=== PATIENT | female | born 1950 | race Caucasian/White ===

== ENCOUNTER → 2018-09-22 14:11 | Outpatient (CLI) | payer MEDICARE, OTHER, SELFPAY | PROVIDERS: PCP Student in an Organized Health Care Education/Training Program; Visit Provider Student in an Organized Health Care Education/Training Program | DX: E07.9 Disorder of thyroid, unspecified (principal); Z78.0 Asymptomatic menopausal state; Z91.89 Other specified personal risk factors, not elsewhere classified; Z90.722 Acquired absence of ovaries, bilateral | CPT/HCPCS: 77080 ==

== ENCOUNTER → 2018-10-09 11:17 | Outpatient (CLI) | payer MEDICARE, OTHER, SELFPAY ==
--- NOTE | 2018-10-09 | DI.MG.S_ITS ---
BILATERAL DIGITAL SCREENING MAMMOGRAM 3D/2D WITH CAD WITH AUGMENTATION: 10/09/2018 CLINICAL: Routine screening. Comparison is made to exams dated: 12/26/2016 mammogram, 12/25/2016 mammogram, and 03/25/2014 mammogram - [facility] in [place]. The tissue of both breasts is heterogeneously dense. This may lower the sensitivity of mammography. Current study was also evaluated with a Computer Aided Detection (CAD) system. Bilateral breast implants are stable and intact. No significant masses, calcifications, or other findings are seen in either breast. There has been no significant interval change. IMPRESSION: NEGATIVE There is no mammographic evidence of malignancy. A 1 year screening mammogram is recommended. This exam was interpreted at Station ID: [id number]. NOTE: For mammograms, a report in lay terms will be sent to the patient. Approximately 15% of breast malignancies will not be visualized mammographically. In the management of a palpable breast mass, a negative mammogram must not discourage biopsy of a clinically suspicious lesion. Electronically Signed By: Jose Armando barker/eduardo:10/09/2018 14:05:10 letter sent: Normal Exam ACR BI-RADS Category 1: Negative 3341F
[2018-10-09 12:37] LABS: Add Manual Diff / Slide Review NO; Basophils Absolute Auto 0 /uL (0-100); Basophils Percent Auto 0.6 % (0-2); Eosinophils Absolute Auto 1800 /uL (0-450); Eosinophils Percent Auto 25.8 % (2-4); Hematocrit 46.4 % (36-46); Hemoglobin 15.5 g/dL (12.0-16.0); Lymphocytes Absolute Auto 1900 /uL (1100-4500); Lymphocytes Percent Auto 27.8 % (25-40); Mean Corpuscular HGB Conc 33.5 % (30-36); Mean Corpuscular Volume 92.7 fL (80-100); Monocytes Absolute Auto 300 /uL (0-900); Monocytes Percent Auto 4.4 % (3-14); Neutrophils Absolute Auto 2800 /uL (1500-7000); Neutrophils Percent Auto 41.4 % (50-75); Platelet Count 253 X10^3/uL (150-400); Red Blood Cell Count 5.01 X10^6/uL (4.0-5.2); Red Cell Distribution Width 13.9 % (11.6-14.8); White Blood Cell Count 6.8 X10^3/uL (4.5-11.0)
[2018-10-09 12:44] LABS: Alanine Aminotransferase 27 IU/L (9-52); Albumin Globulin Ratio 1.5 (1.0-2.8); Alkaline Phosphatase 59 U/L (38-126); Aspartate Aminotransferase 23 IU/L (14-36); BUN Creatinine Ratio 23.3 (6-22); Bilirubin Total 0.9 mg/dL (0.2-1.3); Blood Urea Nitrogen 14 mg/dL (7-17); Calcium 9.3 mg/dL (8.4-10.2); Carbon Dioxide 33 mmol/L (22-32); Chloride 103 mmol/L (98-107); Cholesterol 142 mg/dL (140-199); Estimated Glomerular Filt Rate > 60.0 mL/min (>60); Globulin 2.7 g/dL (1.7-4.1); Glucose 79 mg/dL (80-110); HDL Cholesterol 54 mg/dL (40-60); HEMOLYSIS < 15 (0-50); LDL Cholesterol Calculated 65 mg/dL (<100); Potassium 4.5 mmol/L (3.4-5.1); Sodium 141 mmol/L (137-145); Total Protein 6.7 g/dL (6.3-8.2); Triglycerides 114 mg/dL (35-150)
[2018-10-09 13:01] LABS: Vitamin D 25 Hydroxy (D3) 53.6 ng/mL (30.0-100.0)
[2018-10-09 13:29] LABS: Free T3, Triiodothyronine Free 3.29 pg/mL (2.77-5.27); Free T4, Direct Thyroxine 1.15 ng/dL (0.78-2.19)
== END ==
PROVIDERS: PCP Student in an Organized Health Care Education/Training Program; Visit Provider Student in an Organized Health Care Education/Training Program
DX: Z12.31 Encounter for screening mammogram for malignant neoplasm of breast (principal); E03.9 Hypothyroidism, unspecified; I10 Essential (primary) hypertension; E78.2 Mixed hyperlipidemia; R05 Cough; E55.9 Vitamin D deficiency, unspecified; Z79.899 Other long term (current) drug therapy
CPT/HCPCS: 36415; 77063; 77067; 80053; 80061; 82306; 84439; 84443; 84481; 85025

== ENCOUNTER → 2019-08-13 14:08 | Outpatient (CLI) | payer MEDICARE, OTHER, SELFPAY ==
[2019-08-13 15:34] LABS: Free T4, Direct Thyroxine 1.43 ng/dL (0.78-2.19)
[2019-08-13 15:48] LABS: Thyroid Stimulating Hormone 0.34 uIU/mL (0.47-4.68)
== END ==
PROVIDERS: PCP Student in an Organized Health Care Education/Training Program; Referring Provider Student in an Organized Health Care Education/Training Program; Visit Provider Student in an Organized Health Care Education/Training Program
DX: E03.9 Hypothyroidism, unspecified (principal)
CPT/HCPCS: 36415; 84439; 84443

== ENCOUNTER → 2020-01-20 13:13 | Outpatient (CLI) | payer MEDICARE, OTHER, SELFPAY ==
--- NOTE | 2020-01-20 13:14 | DI.US.S_ITS ---
PROCEDURE: US RENAL COMPLETE INDICATIONS: ABNORMAL FINDING ON OUTSIDE CT TECHNIQUE: Real-time scanning was performed of the kidneys and bladder, with image documentation. COMPARISON: [facility], RG, CT LUNG CANCER SCREENING, 01/14/2020, 15:27. FINDINGS: Kidneys: Kidneys are normal in size. Right kidney measures 9.7 cm long; left kidney measures 11.7 cm long. Right renal cortical thickness is 1.1 cm; left renal cortical thickness is in 1.8 cm. Renal cortical echotexture is normal. 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 Bladder: Pre-void bladder volume is 237 mL. Post-void residual is 0 mL. Pre-void images demonstrate no intraluminal masses or stones. On pre-void images, bilateral ureteral jets are noted with color Doppler interrogation. (Of note, ureteral jets may not be detectable in up to 25% of cases due to insufficient differences in specific gravity between ureteral and bladder urine). Miscellaneous: No free pelvic fluid. IMPRESSION: 1. Abnormal appearance of the left kidney where there is hydronephrosis involving the superior pole and superior pole internal calyx soft tissue mass measuring up to 2.2 cm. Uroepithelial malignancy cannot be excluded and CT IVP is recommended for further characterization. Dictated by: Vadim GALARZA Interpreted: Corey Rao MD on 01/20/2020 at 16:02 Approved by: Corey Rao M.D. on 01/20/2020 at 17:04
--- NOTE | 2020-01-20 13:50 | DI.MG.S_ITS ---
Patient Name: COLTON ARMSTRONG date: 1950 Sex: F Attending Physician: Lavinia Indications: Date: 01/20/2020 14:03 At the request of: SWEETIE HARRY Procedure: MM screening mammo implant BI BILATERAL DIGITAL SCREENING MAMMOGRAM 3D/2D WITH CAD WITH AUGMENTATION: 01/20/2020 CLINICAL: Patient presents for routine screening. S/P bilateral augmentation. Comparison is made to exams dated: 10/09/2018 mammogram - [facility], 12/26/2016 mammogram, and 12/25/2016 mammogram - [facility] in [place]. The tissue of both breasts is heterogeneously dense. This may lower the sensitivity of mammography. Current study was also evaluated with a Computer Aided Detection (CAD) system. Bilateral breast implants are stable and intact. No significant masses, calcifications, or other findings are seen in either breast. There has been no significant interval change. IMPRESSION: NEGATIVE There is no mammographic evidence of malignancy. A 1 year screening mammogram is recommended. This exam was interpreted at Station ID: [id number]. NOTE: For mammograms, a report in lay terms will be sent to the patient. Approximately 15% of breast malignancies will not be visualized mammographically. In the management of a palpable breast mass, a negative mammogram must not discourage biopsy of a clinically suspicious lesion. Electronically Signed By: Hannah tyson/eduardo:01/20/2020 17:02:38 letter sent: Normal Exam ACR BI-RADS Category 1: Negative 3341F Continued Report - Page 2 of 2 Patient Name: COLTON ARMSTRONG date: 1950 Sex: F Attending Physician: Lavinia Indications: Date: 01/20/2020 14:03 At the request of: SWEETIE HARRY Procedure: MM screening mammo implant BI
== END ==
PROVIDERS: PCP Student in an Organized Health Care Education/Training Program; Referring Provider Student in an Organized Health Care Education/Training Program; Visit Provider Student in an Organized Health Care Education/Training Program
DX: Z12.31 Encounter for screening mammogram for malignant neoplasm of breast (principal); Z98.82 Breast implant status; R93.89 Abnormal findings on diagnostic imaging of other specified body structures; N13.30 Unspecified hydronephrosis; N28.89 Other specified disorders of kidney and ureter
CPT/HCPCS: 76770; 77063; 77067

== ENCOUNTER → 2020-01-25 14:07 | Outpatient (CLI) | payer MEDICARE, OTHER, SELFPAY ==
[2020-01-25 15:59] LABS: BUN Creatinine Ratio 20.9 (6-22); Blood Urea Nitrogen 14 mg/dL (7-17); Estimated Glomerular Filt Rate > 60.0 mL/min (>60)
== END ==
PROVIDERS: PCP Student in an Organized Health Care Education/Training Program; Referring Provider Student in an Organized Health Care Education/Training Program; Visit Provider Student in an Organized Health Care Education/Training Program
DX: R93.429 Abnormal radiologic findings on diagnostic imaging of unspecified kidney (principal)
CPT/HCPCS: 36415; 82565; 84520

== ENCOUNTER → 2020-01-27 13:55 | Outpatient (CLI) | payer MEDICARE, OTHER, SELFPAY ==
--- NOTE | 2020-01-27 14:34 | DI.CT.S_ITS ---
PROCEDURE: CT ABDOMEN PELVIS WO/W CON INDICATIONS: renal mass TECHNIQUE: Optional 5 mm thick noncontrast images acquired from the diaphragm to the symphysis pubis. After the administration of intravenous contrast, 5 mm thick images acquired from the diaphragm to the symphysis pubis after a 10-minute delay. 2 mm thick coronal and sagittal reformats were then performed of the kidneys and ureters. For radiation dose reduction, the following was used: automated exposure control, adjustment of mA and/or kV according to patient size. COMPARISON: [facility], , US RENAL COMPLETE, 01/20/2020, 13:29. [facility], , CT LUNG CANCER SCREENING, 01/14/2020, 15:27. FINDINGS: Image quality: Excellent. Lung bases: Lung bases are clear. Heart size is normal. Right breast implant partially visualized. Urinary system: Similar enhancement of both kidneys. The proximal left renal collecting system is duplicated. There is enhancing soft tissue which distends the left superior moiety proximal ureter measuring 2.8 x 1.4 cm, (5/70). Superior pole moiety hydronephrosis is present due to this mass. Additionally there is enhancing soft tissue at the inferior lateral aspect of the left superior pole moiety measuring 1.7 x 1.7 cm, (5/82). These findings correspond to the recent ultrasound findings. No hydronephrosis of the lower pole moiety on the left kidney. No hydronephrosis on the right. No kidney stones. The remaining portions of the ureters are not dilated. No additional filling defect. The urinary bladder is not distended. No bladder calculus. Other solid organs: Liver is normal in size. Well-circumscribed hypodensity in the right lobe of the liver which has the appearance of a benign cysts. A few additional hypodensities near the dome likely additional cysts. Gallbladder is surgically absent. Biliary system is non dilated. Pancreas enhances normally. Spleen is normal in size and enhancement. No adrenal nodules. Peritoneum and bowel: No small bowel obstruction. Question of rectal wall thickening, (3/189). No free fluid or air. Nodes and vessels: No retroperitoneal or mesenteric adenopathy by size criteria. Aorta and inferior vena cava are normal in size. A question of small collateral vessels in the region of the left renal artery. No filling defect in the left renal vein seen. Abdominal wall: No ventral hernias. Pelvis: No pathologic free pelvic fluid. No inguinal hernias or adenopathy. Bones: No suspicious bony lesions. Mild scoliosis. No vertebral body compression fractures. IMPRESSION: 1. 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 2. Mild hydronephrosis of the left kidney superior pole moiety. 3. No enlarged lymph nodes. 4. Small well-circumscribed hypodensities in the liver have the appearance of benign cysts. Dictated by: Kip Solomon M.D. on 01/27/2020 at 17:00 Approved by: Kip Solomon M.D. on 01/27/2020 at 17:25
== END ==
PROVIDERS: PCP Student in an Organized Health Care Education/Training Program; Referring Provider Student in an Organized Health Care Education/Training Program; Visit Provider Student in an Organized Health Care Education/Training Program
DX: N28.89 Other specified disorders of kidney and ureter (principal); R93.429 Abnormal radiologic findings on diagnostic imaging of unspecified kidney; N13.30 Unspecified hydronephrosis
CPT/HCPCS: 74178; Q9967

== ENCOUNTER → 2021-07-16 15:42 | Outpatient (CLI) | payer MEDICARE, SELFPAY ==
--- NOTE | 2021-07-16 15:44 | DI.RAD.S_ITS ---
PROCEDURE: XR HIP W PEL IF DONE RT 2V INDICATIONS: Right hip pain TECHNIQUE: AP pelvis with lateral view(s) of the right hip(s). COMPARISON: [facility], CT, CT ABDOMEN PELVIS WO/W CON, 01/27/2020, 14:30. FINDINGS: Bones: No fractures or dislocations. Pelvic ring appears intact. The joint spaces appear maintained. Moderate osteophytosis about the right hip. No suspicious bony lesions. Soft tissues: The visualized bowel gas pattern is normal. No suspicious soft tissue calcifications. Pelvic surgical clips are noted. IMPRESSION: No acute osseous abnormality. Dictated by: Stanislav Hutchins M.D. on 07/16/2021 at 17:07 Approved by: Stanislav Hutchins M.D. on 07/16/2021 at 17:10
== END ==
PROVIDERS: PCP Student in an Organized Health Care Education/Training Program; Referring Provider Student in an Organized Health Care Education/Training Program; Visit Provider Student in an Organized Health Care Education/Training Program
DX: M16.10 Unilateral primary osteoarthritis, unspecified hip (principal)
CPT/HCPCS: 73502

== ENCOUNTER → 2021-07-19 13:34 | Outpatient (CLI) | payer MEDICARE, SELFPAY ==
--- NOTE | 2021-07-19 13:36 | DI.CT.S_ITS ---
PROCEDURE: CT CHEST WO CON INDICATIONS: cough, f/u pulmonary nodule TECHNIQUE: Noncontrast 2.0-2.5 mm thick sections acquired from the pulmonary apices to the posterior costophrenic angles. 7 mm thick axial MIP and 5 mm coronal and sagittal reformats were then acquired. A low radiation dose technique was utilized. COMPARISON: [facility], RG, CT LUNG CANCER SCREENING, 01/14/2020, 15:27. FINDINGS: Image quality: Diagnostic, given the low radiation dose technique. Lungs and pleura: There is mild centrilobular emphysema with an apical predominance. No pulmonary nodules. No acute airspace opacities. No pleural effusion or pneumothorax. Mediastinum: Heart size is normal. No pericardial effusion. No mediastinal adenopathy by size criteria. Thoracic aorta and central pulmonary arteries are normal in size. Esophagus is normal in caliber. No hiatal hernia. Bones and chest wall: No suspicious bony lesions. No vertebral body compression fractures. No axillary or supraclavicular adenopathy by size criteria. Thyroid gland is unremarkable. Bilateral breast implants appear intact. Abdomen: Visualized upper abdomen solid organs and bowel loops appear normal in the absence of contrast. IMPRESSION: No pulmonary nodules, suspicious mass lesions, or acute airspace opacities. Fleischner Society criteria for SOLID lung nodule followup. Nodule size (mm)Low-risk patientHigh-risk patient<6 (single or multiple)No routine followup.Optional CT at 12 months. 6-8 (single or multiple)CT at 6-12 months, then optional CT at 18-24 mo.CT at 6-12 months, then CT at 18-24 months. >8 (single)CT at 3 months, PET-CT, or biopsy. Same as for low-risk pts. >8 (multiple)CT at 3-6 months, then optional CT at 18-24 mo.CT at 3-6 months, then CT at 18-24 months. Fleischner Society criteria for SUB-SOLID lung nodule followup. Solitary pure ground-glass nodules<6 mm (ground glass or part solid)No followup needed. 6 mm or larger (ground glass)CT at 6-12 months to confirm persistence, then CT every 2 years until 5 years.6 mm or larger (part solid)CT at 3-6 months to confirm persistence, then annual CT until 5 years if unchanged and solid component remains <6 mm. Multiple sub-solid nodules<6 mmCT at 3-6 months, then CT consider at 2 & 4 years for high risk patients. [address] at 3-6 months. Subsequent management based on most suspicious lesions. Recommendations do not apply to lung cancer screening, patients with immunosuppression, or patients with known primary cancer. Dictated by: Mallory Su M.D. on 07/19/2021 at 16:33 Approved by: Mallory Su M.D. on 07/19/2021 at 16:36
[2021-07-19 15:31] LABS: Hematocrit 43.8 % (36-46); Hemoglobin 14.2 g/dL (12.0-16.0); Mean Corpuscular HGB Conc 32.4 % (30-36); Mean Corpuscular Hemoglobin 30.2 PG (26-34); Mean Corpuscular Volume 93.3 fL (80-100); Platelet Count 271 X10^3/uL (150-400); Red Cell Distribution Width 13.7 % (11.6-14.8); White Blood Cell Count 5.2 X10^3/uL (4.5-11.0)
[2021-07-19 16:27] LABS: BUN Creatinine Ratio 15.5 (6-22); Blood Urea Nitrogen 16 mg/dL (7-17); Calcium 9.6 mg/dL (8.4-10.2); Carbon Dioxide 32 mmol/L (22-32); Chloride 102 mmol/L (98-107); Glucose 61 mg/dL (80-110); HEMOLYSIS < 15 (0-50); Potassium 4.4 mmol/L (3.4-5.1); Sodium 140 mmol/L (137-145)
[2021-07-19 16:55] LABS: Creatinine Urine Random 110.2 mg/dL; TSH w/ Reflex to FT4 0.58 uIU/mL (0.47-4.68)
[2021-07-19 17:18] LABS: Microalbumin Urine Random < 0.6 mg/dL (0-1.6)
== END ==
PROVIDERS: PCP Student in an Organized Health Care Education/Training Program; Referring Provider Student in an Organized Health Care Education/Training Program; Visit Provider Student in an Organized Health Care Education/Training Program
DX: E03.9 Hypothyroidism, unspecified (principal); R91.1 Solitary pulmonary nodule; N28.89 Other specified disorders of kidney and ureter
CPT/HCPCS: 36415; 71250; 80048; 82043; 82570; 84443; 85027

== ENCOUNTER → 2021-08-01 07:49 | Outpatient (CLI) | payer MEDICARE, SELFPAY ==
--- NOTE | 2021-08-01 | DI.MG.S_ITS ---
BILATERAL DIGITAL SCREENING MAMMOGRAM 3D/2D WITH CAD WITH AUGMENTATION: 08/01/2021 CLINICAL: Routine screening. Comparison is made to exams dated: 01/20/2020 mammogram, 10/09/2018 mammogram - [facility], and 12/26/2016 mammogram - [facility] in [place]. The tissue of both breasts is heterogeneously dense. This may lower the sensitivity of mammography. Current study was also evaluated with a Computer Aided Detection (CAD) system. Bilateral breast implants are stable and intact. No significant masses, calcifications, or other findings are seen in either breast. There has been no significant interval change. IMPRESSION: NEGATIVE There is no mammographic evidence of malignancy. A 1 year screening mammogram is recommended. This exam was interpreted at Station ID: [id number]. NOTE: For mammograms, a report in lay terms will be sent to the patient. Approximately 15% of breast malignancies will not be visualized mammographically. In the management of a palpable breast mass, a negative mammogram must not discourage biopsy of a clinically suspicious lesion. Electronically Signed By: Hannah tyson/eduardo:08/01/2021 09:44:10 letter sent: Normal Exam ACR BI-RADS Category 1: Negative 3341F
== END ==
PROVIDERS: PCP Student in an Organized Health Care Education/Training Program; Referring Provider Student in an Organized Health Care Education/Training Program; Visit Provider Student in an Organized Health Care Education/Training Program
DX: Z12.31 Encounter for screening mammogram for malignant neoplasm of breast (principal)
CPT/HCPCS: 77063; 77067